=== PATIENT | male | born 1950 | race Caucasian/White ===

== ENCOUNTER 2018-01-11 11:49 | Inpatient (IN) ==
[2018-01-11] MEDS ORDERED: ASPIRIN 81 MG TAB.CHEW CHEWED ONE (12:07)
[2018-01-11] MEDS ORDERED: 0.9 % SODIUM CHLORIDE 1,000 ML IV ONE (12:07)
--- NOTE | 2018-01-11 12:20 | Emergency Department Note ---
General Adult HPI - General Chief complaint: Dizziness Stated complaint: dizziness Time Seen by Provider: 01/11/18 11:59 Source: patient Mode of arrival: ambulatory Limitations: no limitations - History of Present Illness HPI Narrative: This patient felt lightheaded this morning in the shower and actually passed out and found himself on the floor of the shower. His blood pressure is running a little low. He does take antihypertensives. He has had no fever chills cough congestion no chest pain back pain abdominal pain no nausea vomiting or diarrhea. - Related Data Home Medications Medication Instructions Recorded Confirmed travoprost 0.004 % eye drops 1 drp OPHTHALMIC ONCE 02/03/17 12/05/17 Previous Rx's Medication Instructions Recorded tamsulosin 0.4 mg capsule 0.4 mg PO QDAY #30 cap 03/07/17 lisinopril 20 1 tab PO QDAY #90 tab 06/16/17 mg-hydrochlorothiazide 25 mg tablet metformin ER 1,000 mg 24 hr 1,000 mg PO QDAY #90 tab 06/16/17 tablet,extended release atorvastatin 40 mg tablet 40 mg PO QDAY #90 tab 07/28/17 propranolol ER 120 mg capsule,24 120 mg PO QDAY #90 cap 08/21/17 hr,extended release Allergies Allergy/AdvReac Type Severity Reaction Status Date / Time codeine AdvReac Intermediate Nightmare Verified 01/11/18 11:52 Muscle Relaxers AdvReac Intermediate Other Uncoded 12/05/17 09:17 Review of Systems All systems ED: reviewed and negative except as stated. Past Medical History - Past Medical History PMF Narrative: Medical History (Last Reviewed 12/05/17 @ 09:18 by Eufemia Stockton RN) Chewing tobacco use (Chronic) Tremor (Chronic) Impaired fasting glucose (Chronic) Hyperlipidemia (Chronic) Personal history of colonic polyps (Chronic) Pancreatitis (Chronic ~2008) Closed right ankle fracture (Chronic 1974) Eye disorder (Chronic) Migraines (Chronic) Hypertension, essential (Chronic) Acid reflux (Chronic) codeine Adverse Reaction (Intermediate, Verified 01/11/18 11:52) Nightmare Muscle Relaxers Adverse Reaction (Intermediate, Uncoded 12/05/17 09:17) Other 01/11/18 12:07 ED Peripheral IV NOW IV Discontinue (ED) once XR chest 1V portable Stat CK-MB/CK Total Stat Complete Blood Count Stat Comprehensive Metabolic Panel Stat Myoglobin Stat Troponin T Stat 01/11/18 12:17 Lactic Acid, Venous Stat Urinalysis Stat Temp Pulse Resp BP Pulse Ox 97.4 F 65 18 95/54 99 01/11/18 11:50 01/11/18 11:50 01/11/18 11:50 01/11/18 11:50 01/11/18 11:50 Past Surgical History (Last Reviewed 12/05/17 @ 09:18 by Eufemia Stockton RN) H/O colonoscopy (Chronic) H/O eye surgery (Chronic) H/O eye surgery (Chronic) H/O inguinal hernia repair (Chronic) History of cholecystectomy (Chronic) History of open reduction and internal fixation (ORIF) procedure (Chronic) History of renal stent (Chronic) History of surgery (Chronic) History of surgery of liver (Chronic) Hx of eye surgery (Chronic) Family History (Last Reviewed 12/05/17 @ 09:18 by Eufemia Stockton RN) Mother Arthritis Diabetes Hypertension, essential CAD (coronary artery disease) Grandmother Diabetes Family/Other Diabetes Thyroid disease Father Heart attack CAD (coronary artery disease) Unknown Parkinson disease Medical history: Reports: non-contributory Psychiatric history: Reports: no psych history Surgical history ED: Reports: cholecystectomy - Social History smoking status: Smokeless tobacco Physical Exam Limitations: no limitations General appearance: alert Head: atraumatic Eye: Present: normal appearance ENT: normal exam Neck: Present: normal inspection Chest: Present: normal inspection Respiratory: Present: normal lung sounds bilaterally Cardiovascular: Present: regular rate, normal rhythm, normal heart sounds Abdominal: Present: soft. Absent: distention, tenderness Extremities: Absent: pedal edema, pretibial edema Neurological: Present: alert Psychiatric: Present: normal affect, normal mood Skin: Present: warm, dry, intact Course Vital Signs Temperature 97.4 F 01/11/18 11:50 Pulse Rate 65 01/11/18 11:50 Respiratory Rate 18 01/11/18 11:50 Blood Pressure 95/54 01/11/18 11:50 Pulse Oximetry (%) 99 01/11/18 11:50 Temperature 97.4 F 01/11/18 11:50 Pulse Rate 54 L 01/11/18 17:51 Respiratory Rate 16 01/11/18 17:41 Blood Pressure 128/61 01/11/18 17:51 Pulse Oximetry (%) 100 01/11/18 17:51 Medical Decision Making - MDM Narrative Medical decision making narrative: This patient's hypotension responded quickly to fluid hydration however he was unable to urinate and after 3 L of fluid he is only able to urinate 30 cc. Specific gravity was only 1015. His creatinine was 3.4 and back in June it was 1.1. He does have borderline diabetes. After 3 L of fluid his creatinine came down to 3.0 but his BUN remained at 52. His anion gap did improve from 18-13. I did not repeat his lactic acid but was only 2.2 initially. Chest x-ray was unremarkable. Urine dip did not have white cells. He had no fever. Actually felt quite well and was anxious to go home but I convinced him he needed to stay in the hospital to see Dr. Shetty tomorrow. I did consult with her. He will be admitted to the hospital by Dr. Anthony. - Lab Data Lab results reviewed: Yes I reviewed the patient's lab results. Result diagrams: 01/11/18 12:07 01/11/18 16:23 Lab Results 01/11/18 01/11/18 01/11/18 Range/Units 12:07 12:07 12:07 WBC 8.3 (4.5-11.0) K/mcL RBC 4.61 (4.50-5.90) M/mcL Hgb 14.1 (13.5-16.5) g/dL Hct 41.9 (41.0-55.0) % MCV 91.0 (80.0-100.0) fL MCH 30.7 (26.0-34.0) pg MCHC 33.7 (31.0-36.0) g/dL RDW 13.9 (11.5-14.5) % Plt Count 203 (140-440) K/mcL MPV 8.5 (7.4-10.4) fL Gran % 76.7 (38.0-78.0) % Lymph % (Auto) 14.8 L (15.5-49.0) % [place] % (Auto) 7.1 (1.0-12.0) % Eos % (Auto) 1.2 (0.0-7.0) % Baso % (Auto) 0.2 (0.0-2.0) % Gran # 6.4 (1.8-8.0) K/mcL Lymph # (Auto) 1.2 L (1.5-4.8) K/mcL [place] # (Auto) 0.6 (0.1-0.9) K/mcL Eos # (Auto) 0.1 (0.0-0.7) K/mcL Baso # (Auto) 0 (0.0-0.3) K/mcL VBG Lactic Acid (0.5-2.0) mmol/L Sodium 133 (133-145) mmol/L Potassium 3.7 (3.3-5.1) mmol/L Chloride 90 L (96-108) mmol/L Carbon Dioxide 25 (22-30) mmol/L Anion Gap 18.0 H (8-16) BUN 53 H (8-23) mg/dl Creatinine 3.4 H (0.7-1.2) mg/dl GFR Calculation 18 Glucose 182 H (70-105) mg/dL Calcium 8.6 (8.6-10.4) mg/dl Total Bilirubin 0.9 (0.0-1.0) mg/dL AST 19 (0-37) U/l ALT 22 (0-40) U/l Alkaline Phosphatase 126 H (39-117) U/L Total Creatine Kinase 60 (24-195) IU/L CK-MB (CK-2) 1.4 (0-4.9) ng/ml Myoglobin 130 H (28-72) ng/ml Troponin T < 0.01 (0-0.03) ng/ml Total Protein 7.0 (5.9-8.4) gm/dL Albumin 4.3 (3.2-5.2) gm/dL Globulin 2.7 (2.2-3.7) gm/dL Albumin/Globulin Ratio 1.6 (1.0-2.3) 01/11/18 01/11/18 Range/Units 12:47 16:23 WBC (4.5-11.0) K/mcL RBC (4.50-5.90) M/mcL Hgb (13.5-16.5) g/dL Hct (41.0-55.0) % MCV (80.0-100.0) fL MCH (26.0-34.0) pg MCHC (31.0-36.0) g/dL RDW (11.5-14.5) % Plt Count (140-440) K/mcL MPV (7.4-10.4) fL Gran % (38.0-78.0) % Lymph % (Auto) (15.5-49.0) % [place] % (Auto) (1.0-12.0) % Eos % (Auto) (0.0-7.0) % Baso % (Auto) (0.0-2.0) % Gran # (1.8-8.0) K/mcL Lymph # (Auto) (1.5-4.8) K/mcL [place] # (Auto) (0.1-0.9) K/mcL Eos # (Auto) (0.0-0.7) K/mcL Baso # (Auto) (0.0-0.3) K/mcL VBG Lactic Acid 2.2 H (0.5-2.0) mmol/L Sodium 137 (133-145) mmol/L Potassium 4.1 (3.3-5.1) mmol/L Chloride 98 (96-108) mmol/L Carbon Dioxide 26 (22-30) mmol/L Anion Gap 13.0 (8-16) BUN 52 H (8-23) mg/dl Creatinine 3.0 H (0.7-1.2) mg/dl GFR Calculation 21 Glucose 183 H (70-105) mg/dL Calcium 8.1 L (8.6-10.4) mg/dl Total Bilirubin 0.7 (0.0-1.0) mg/dL AST 14 (0-37) U/l ALT 18 (0-40) U/l Alkaline Phosphatase 100 (39-117) U/L Total Creatine Kinase (24-195) IU/L CK-MB (CK-2) (0-4.9) ng/ml Myoglobin (28-72) ng/ml Troponin T (0-0.03) ng/ml Total Protein 5.6 L (5.9-8.4) gm/dL Albumin 3.6 (3.2-5.2) gm/dL Globulin 2.0 L (2.2-3.7) gm/dL Albumin/Globulin Ratio 1.8 (1.0-2.3) - Radiology Data Radiology results reviewed: Yes I reviewed the patient's radiology results. Disposition Pt seen by ROTOR CASTING MACHINE SETUP OPERATOR/PA only: No Clinical Impression: Acute renal failure, Dehydration Disposition: Xfer As Outpt/Obs ([facility] [place]) Condition: Good Referrals: Bola Roberts DO [Primary Care Provider] - Time of Disposition: 18:07
--- NOTE | 2018-01-11 12:29 | XRay Report ---
CLINICAL INFORMATION: Chest Pain COMPARISON: 06/23/2017 FINDINGS: The heart size, mediastinum and pulmonary vessels are unremarkable. The lungs are clear. There are no effusions. The bones and soft tissues are within normal limits. IMPRESSION: Normal chest. Interpreted and Authenticated by: Bola Pisano 01/11/18
[2018-01-11 12:38] LABS: Basophils # (Auto) 0 K/mcL (0.0-0.3); Basophils % (Auto) 0.2 % (0.0-2.0); Eosinophils # (Auto) 0.1 K/mcL (0.0-0.7); Eosinophils % (Auto) 1.2 % (0.0-7.0); Granulocytes % (Auto) 76.7 % (38.0-78.0); Lymphocytes # (Auto) 1.2 K/mcL (1.5-4.8); Lymphocytes % (Auto) 14.8 % (15.5-49.0); Mean Corpuscular HGB Conc 33.7 g/dL (31.0-36.0); Mean Corpuscular Hemoglobin 30.7 pg (26.0-34.0); Monocytes # (Auto) 0.6 K/mcL (0.1-0.9); Monocytes % (Auto) 7.1 % (1.0-12.0); Platelet Count 203 K/mcL (140-440); RBC 4.61 M/mcL (4.50-5.90); Red Cell Distribution Width 13.9 % (11.5-14.5)
[2018-01-11 13:02] LABS: ALT/SGPT 22 U/l (0-40); Albumin 4.3 gm/dL (3.2-5.2); Albumin/Globulin Ratio 1.6 (1.0-2.3); Alkaline Phosphatase 126 U/L (39-117); Blood Urea Nitrogen 53 mg/dl (8-23); Creatine Kinase 60 IU/L (24-195); Creatine Kinase MB 1.4 ng/ml (0-4.9); Myoglobin 130 ng/ml (28-72)
[2018-01-11] MEDS ORDERED: LACTATED RINGERS 1,000 ML IV ONE ×2 (15:07→15:08)
[2018-01-11 17:21] LABS: ALT/SGPT 18 U/l (0-40); Albumin 3.6 gm/dL (3.2-5.2); Albumin/Globulin Ratio 1.8 (1.0-2.3); Alkaline Phosphatase 100 U/L (39-117); Blood Urea Nitrogen 52 mg/dl (8-23)
--- NOTE | 2018-01-11 18:37 | Internal Med History&Physical ---
Medical - H&P: HPI Patient information: Note initiated : 01/11/18 at 6:33 pm Service Date, if different from initiated Date: [] Patient: Yajaira Cardenas a 67 y/o M admitted on for dizziness. Chief Complaint: [] History of present illness: Mr. Cardenas is a 67 year old M who presents to the ER after syncope in the shower. Patient states over the past couple days has had increasing weakness and lightheadedness this morning in the shower he felt very weak became lightheaded and eventually passed out and found himself on the floor of the shower did not hit his head. Patient brought himself to the ER. In the ER was found to have systolics in the 80s in the acute kidney injury. His EKG shows sinus bradycardia 50s, patient states his heart rate typically runs 40s-50s. Chest x-ray unremarkable. She has not patient denies any chest pain or shortness of breath no abdominal pain. No recent illnesses or sick contacts. No new medications other than medications restarted year ago. Patient denies diarrhea fevers or chills. He had an episode of nausea vomiting after Thanksgiving which is not unusual for him to have an episode of nausea vomiting after large meals. None since. In the ER his hypotension resolved with IV fluid hydration he received 3 L, and began to feel much better. Home medications include lisinopril hydrochlorothiazide propranolol for essential tremor. He established with Dr. Roberts about a year ago and started on all his medications as he had not seen a primary care doctor the 10 years prior. Case was discussed with Dr. Orellana ED. Patient was convinced to stay overnight for further evaluation including evaluation by fusion juncture grinder. Review of Systems: Pertinent positives as above. denies headache/fever/chills/chest or abdominal pain/cough/dyspnea/diarrhea. Remaining 10 point review of systems reviewed and negative Medical - H&P: PM Medical history: Medical History (Last Reviewed 12/05/17 @ 09:18 by Eufemia Stockton RN) Chewing tobacco use (Chronic) Tremor (Chronic) Impaired fasting glucose (Chronic) Hyperlipidemia (Chronic) Personal history of colonic polyps (Chronic) Pancreatitis (Chronic ~2008) Closed right ankle fracture (Chronic 1974) Eye disorder (Chronic) Migraines (Chronic) Hypertension, essential (Chronic) Acid reflux (Chronic) CKD II Past Surgical History (Last Reviewed 12/05/17 @ 09:18 by Eufemia Stockton RN) H/O colonoscopy (Chronic) H/O eye surgery (Chronic) H/O eye surgery (Chronic) H/O inguinal hernia repair (Chronic) History of cholecystectomy (Chronic) during hospital course of severe pancreatitis History of open reduction and internal fixation (ORIF) procedure (Chronic) History of renal stent (Chronic) during the hospital course for his severe pancreatitis History of surgery (Chronic) of pancreas during the hospitalization for severe pancreatitis History of surgery of liver (Chronic) Hx of eye surgery (Chronic) Family History (Last Reviewed 12/05/17 @ 09:18 by Eufemia Stockton RN) Mother Arthritis Diabetes Hypertension, essential CAD (coronary artery disease) Grandmother Diabetes Family/Other Diabetes Thyroid disease Father Heart attack CAD (coronary artery disease) Unknown Parkinson disease Social History (Last Updated 12/05 Patient uses chewing tobacco, no cigarettes Denies alcohol Lives by himself Medical - H&P: Meds Home Medications Medication Instructions Recorded Confirmed Type travoprost 0.004 % eye drops 1 drp OPHTHALMIC ONCE 02/03/17 01/11/18 History tamsulosin 0.4 mg capsule 0.4 mg PO QDAY #30 cap 03/07/17 01/11/18 Rx lisinopril 20 1 tab PO QDAY #90 tab 06/16/17 12/05/17 Rx mg-hydrochlorothiazide 25 mg tablet metformin ER 1,000 mg 24 hr 1,000 mg PO QDAY #90 tab 06/16/17 01/11/18 Rx tablet,extended release atorvastatin 40 mg tablet 40 mg PO QDAY #90 tab 07/28/17 01/11/18 Rx propranolol ER 120 mg capsule,24 120 mg PO QDAY #90 cap 08/21/17 01/11/18 Rx hr,extended release Dorzolamide/Timolol/Pf 1 each OU DAILY 01/11/18 01/11/18 History [Dorzolamide-Timolol 2%-0.5%] Timolol 0.5% Ophth Drops [Timoptic 1 gtt OU BID 01/11/18 01/11/18 History 0.5% Ophth Drops] Allergies Allergy/AdvReac Type Severity Reaction Status Date / Time codeine AdvReac Intermediate Nightmare Verified 01/11/18 11:52 Muscle Relaxers AdvReac Intermediate Other Uncoded 12/05/17 09:17 Medical - H&P: Exam - Constitutional Vitals: Temp Pulse Resp BP Pulse Ox 97.4 F 54 L 16 128/61 100 01/11/18 11:50 01/11/18 17:51 01/11/18 17:41 01/11/18 17:51 01/11/18 17:51 Exam: General: Alert, Awake, No acute Distress Eyes/N/T: EOMI, , dry mucous membranes Head/Neck: neck supple, normocephalic atraumatic CV: Mildly bradycardic but regular, No murmurs, normal s1/s2 Pulm: Clear b/l, no wheezing/rhonchi/rales Abd: soft, nontender, +BS x4 Ext: no clubbing/cyanosis/edema Neuro: Alert, no focal deficits, moves all extremities Skin: warm/dry Medical - H&P: Reslt - Labs CBC & Chem 7: 01/11/18 12:07 01/11/18 16:23 Labs: Short CBC 01/11/18 Range/Units 12:07 WBC 8.3 (4.5-11.0) K/mcL Hgb 14.1 (13.5-16.5) g/dL Hct 41.9 (41.0-55.0) % Plt Count 203 (140-440) K/mcL BMP 01/11/18 01/11/18 12:07 16:23 Sodium 133 137 Potassium 3.7 4.1 Chloride 90 L 98 Carbon Dioxide 25 26 BUN 53 H 52 H Creatinine 3.4 H 3.0 H Glucose 182 H 183 H Calcium 8.6 8.1 L Cardiac Enzymes 01/11/18 01/11/18 Range/Units 12:07 12:07 Total Creatine Kinase 60 (24-195) IU/L CK-MB (CK-2) 1.4 (0-4.9) ng/ml Troponin T < 0.01 (0-0.03) ng/ml Liver Function 01/11/18 01/11/18 Range/Units 12:07 16:23 Total Bilirubin 0.9 0.7 (0.0-1.0) mg/dL AST 19 14 (0-37) U/l ALT 22 18 (0-40) U/l Alkaline Phosphatase 126 H 100 (39-117) U/L Albumin 4.3 3.6 (3.2-5.2) gm/dL - Impressions Chest x-ray unremarkable EKG was sinus bradycardia in the 50s Medical - H&P: A/P - Narrative A/P Narrative: A: *ZEV on CKD II: prerenal multifactorial from Meds/chronic Bradycardia and likely recent poor oral intake -3.4 on admit, 1.1 in June *Volume depletion: *Hypertension, hypovolemia: *Syncope: Secondary to above *Diabetes: *HTN/HLD: *Sinus Roberto: pt state he is chronically 45-50's P: -IVF's -renal u/s -UA pending -hold BP meds (may need to adjust upon discharge), d/c BB upon discharge and consider primidone for essential tremors instead -urine studies pending - -SSI -ppx: heparin
[2018-01-11 18:49] LABS: Appearance,Urine HAZY; Bacteria,Urine 0 /hpf (0); Bilirubin,Urine NEG (NEG); Color,Urine YELLOW; Glucose,Urine (UA) NEGATIVE (NEG); Leukocyte Esterase,Urine NEG /uL (NEG); Mucus,Urine FEW /hpf (0); Protein,Urine NEG (NEG); Specific Gravity,Urine 1.015 (1.000-1.035); Urine Blood 0.03 mg/dL (<0.03); Urine Hyaline Cast 6 /lpf (0-2); Urine RBC 1 /hpf (0-1); Urine Squamous Epithelial Cell < 1 /hpf (0-4); Urine WBC 6 /hpf (0-4); Urobilinogen,Urine NEG (NEG)
[2018-01-11] MEDS ORDERED: ONDANSETRON 4 MG/2 ML VIAL IV PRN (19:38)
[2018-01-11] MEDS ORDERED: DEXTROSE 50% 50 ML VIAL IV PRN (19:38)
[2018-01-11] MEDS ORDERED: ACETAMINOPHEN 325 MG TABLET PO PRN (19:38)
[2018-01-11] MEDS ORDERED: DEXTROSE 31 GM ORAL.SUSP PO PRN (19:38)
[2018-01-11] MEDS: 0.9 % SODIUM CHLORIDE 1,000 ML IV SCH (20:11)
[2018-01-11] MEDS ORDERED: TRAVOPROST OPHTH DROPS BOTTLE 2.5ML OS SCH (21:00)
[2018-01-11] MEDS: INSULIN LISPRO 1 UNIT/0.01 ML UNIT SQ SCH (21:13)
[2018-01-11] MEDS: TIMOLOL 0.5% OPHTH DROPS BOTTLE 5ML OU SCH (21:15)
[2018-01-11] MEDS: HEPARIN 5,000 UNIT/ML VIAL SQ SCH (21:15)
[2018-01-12 05:37] LABS: Basophils # (Auto) 0 K/mcL (0.0-0.3); Basophils % (Auto) 0.4 % (0.0-2.0); Eosinophils # (Auto) 0.1 K/mcL (0.0-0.7); Eosinophils % (Auto) 2.2 % (0.0-7.0); Granulocytes % (Auto) 65.7 % (38.0-78.0); Lymphocytes # (Auto) 1.4 K/mcL (1.5-4.8); Lymphocytes % (Auto) 22.5 % (15.5-49.0); Mean Cell Volume 90.1 fL (80.0-100.0); Mean Corpuscular HGB Conc 34.2 g/dL (31.0-36.0); Mean Corpuscular Hemoglobin 30.8 pg (26.0-34.0); Monocytes # (Auto) 0.6 K/mcL (0.1-0.9); Monocytes % (Auto) 9.2 % (1.0-12.0); Platelet Count 148 K/mcL (140-440); RBC 3.82 M/mcL (4.50-5.90); Red Cell Distribution Width 13.7 % (11.5-14.5)
[2018-01-12] MEDS: 0.9 % SODIUM CHLORIDE 10 ML SYRINGE IV SCH ×4 (05:58→22:54)
[2018-01-12 06:03] LABS: ALT/SGPT 16 U/l (0-40); Albumin 3.3 gm/dL (3.2-5.2); Albumin/Globulin Ratio 1.5 (1.0-2.3); Alkaline Phosphatase 103 U/L (39-117); Bilirubin,Direct < 0.2 mg/dL (0.0-0.3); Blood Urea Nitrogen 49 mg/dl (8-23); Gamma Glutamyl Transpeptidase 26 U/L (8-61); Uric Acid 9.1 mg/dL (2.5-8.0)
[2018-01-12] MEDS: INSULIN LISPRO 1 UNIT/0.01 ML UNIT SQ SCH ×4 (06:38→20:57)
--- NOTE | 2018-01-12 07:13 | Internal Med Progress Note ---
Medical - PN: Subj Patient information: Note initiated : 01/12/18 at 7:07 am Service Date, if different from initiated Date: [] Patient: Yajaira Cardenas a 67 y/o M admitted on 01/11/18 for dizziness. Chief Complaint: [] Interval history: Mr. Cardenas is a 67 year old M who presents to the ER after syncope in the shower. Patient states over the past couple days has had increasing weakness and lightheadedness this morning in the shower he felt very weak became lightheaded and eventually passed out and found himself on the floor of the shower did not hit his head. Patient brought himself to the ER. In the ER was found to have systolics in the 80s in the acute kidney injury. His EKG shows sinus bradycardia 50s, patient states his heart rate typically runs 40s-50s. Chest x-ray unremarkable. She has not patient denies any chest pain or shortness of breath no abdominal pain. No recent illnesses or sick contacts. No new medications other than medications restarted year ago. Patient denies diarrhea fevers or chills. He had an episode of nausea vomiting after Thanksgiving which is not unusual for him to have an episode of nausea vomiting after large meals. None since. In the ER his hypotension resolved with IV fluid hydration he received 3 L, and began to feel much better. Home medications include lisinopril hydrochlorothiazide propranolol for essential tremor. He established with Dr. Roberts about a year ago and started on all his medications as he had not seen a primary care doctor the 10 years prior. Case was discussed with Dr. Orellana ED. Patient was convinced to stay overnight for further evaluation including evaluation by grey percher. 01/12 No dizziness lightheadedness. Slept well. Feeling better. No new complaints. He feels like he is urinating fine but states it does come on slowly. Review of Systems: denies headache/fever/chills/nausea/vomiting/chest or abdominal pain/cough/ dyspnea/diarrhea. Otherwise see above. - Constitutional Vitals: Vital Signs Temp Pulse Resp BP Pulse Ox 98.2 F 57 L 18 106/60 93 01/12/18 04:00 01/12/18 04:00 01/12/18 04:00 01/12/18 04:00 01/12/18 04:00 Period Temp Pulse Resp BP Sys/Lu Pulse Ox Last 24 Hr 97.3 F-98.7 F 49-81 13-24 64-139/50-90 88-100 Intake and Output 01/11/18 01/12/18 01/12/18 21:59 05:59 13:59 Intake Total 2720 / 2720 150 / 150 Output Total 325 / 325 425 / 425 Balance 2395 / 2395 -275 / -275 Weight 88.451 kg 88.451 kg Intake & Output: Intake & Output 01/11/18 01/12/18 01/12/18 21:59 05:59 13:59 Intake Total 2720 / 2720 150 / 150 Output Total 325 / 325 425 / 425 Balance 2395 / 2395 -275 / -275 Weight 88.451 kg 88.451 kg Intake: IV 1999 Lactated Ringers 1,000 ml @ 1999 Wide Open IV BOLUS ONE Rx#: [id number] Oral 720 / 720 150 / 150 Output: Void Amount 325 / 325 425 / 425 Other: Meal Jello, crackers Urine Appearance Clear Urine Color Dark Yellow Urine Odor Strong # Voids 1 1 Exam: General: Alert, Awake, No acute Distress Eyes/N/T: EOMI, , Head/Neck: neck supple, CV: RRR, No murmurs, Pulm: Clear b/l, no wheezing/rhonchi/rales Abd: soft, nontender, +BS x4 Ext: no clubbing/cyanosis/edema Neuro: Alert, no focal deficits, moves all extremities Skin: warm/dry Medical - PN: Obj Da - Labs CBC & Chem 7: 01/12/18 04:00 01/12/18 03:35 Labs: Abnormal Lab Results 01/12/18 01/12/18 01/11/18 04:00 03:35 17:53 RBC 3.82 L Hgb 11.8 L Hct 34.4 L Lymph % (Auto) Lymph # (Auto) 1.4 L VBG Lactic Acid Chloride Anion Gap BUN 49 H Creatinine 2.4 H Glucose 122 H Uric Acid 9.1 H Calcium 8.2 L Alkaline Phosphatase Myoglobin Total Protein 5.5 L Globulin Triglycerides 249 H Urine Occult Blood 0.03 A Urine WBC 6 H Hyaline Casts 6 H 01/11/18 01/11/18 01/11/18 16:23 12:47 12:07 RBC Hgb Hct Lymph % (Auto) Lymph # (Auto) VBG Lactic Acid 2.2 H Chloride 90 L Anion Gap 18.0 H BUN 52 H 53 H Creatinine 3.0 H 3.4 H Glucose 183 H 182 H Uric Acid Calcium 8.1 L Alkaline Phosphatase 126 H Myoglobin 130 H Total Protein 5.6 L Globulin 2.0 L Triglycerides Urine Occult Blood Urine WBC Hyaline Casts 01/11/18 12:07 RBC Hgb Hct Lymph % (Auto) 14.8 L Lymph # (Auto) 1.2 L VBG Lactic Acid Chloride Anion Gap BUN Creatinine Glucose Uric Acid Calcium Alkaline Phosphatase Myoglobin Total Protein Globulin Triglycerides Urine Occult Blood Urine WBC Hyaline Casts Meds: Medications Acetaminophen (Tylenol) 650 mg PO Q6HP PRN PRN Reason: PAIN/FEVER > 101 Dextrose (Dextrose 50%) 0 ml IV UD PRN PRN Reason: Hypoglycemia Diagnostic Test (Pha) (Accu-Chek) 1 each FS ACHS [facility] Last Admin: 01/12/18 06:36 Dose: 1 each Glucose (Insta-Glucose) 15 gm PO PRN PRN PRN Reason: Hypoglycemia Heparin Sodium (Porcine) (Heparin) 5,000 unit SQ Q12 [facility] Last Admin: 01/11/18 21:15 Dose: 5,000 unit Sodium Chloride (Sodium Chloride 0.9%) 1,000 mls @ 100 mls/hr IV .Q10H [facility] Last Admin: 01/11/18 20:11 Dose: 100 mls/hr Insulin Human Lispro (Humalog) 0 unit SQ [facility]; Protocol Last Admin: 01/12/18 06:38 Dose: Not Given Ondansetron HCl (Zofran) 4 mg IV Q4HP PRN PRN Reason: Nausea And Vomiting Sodium Chloride (Saline Flush) 10 ml IV Q8 [facility] Last Admin: 01/12/18 05:58 Dose: Not Given Tamsulosin HCl (Flomax) 0.4 mg PO QDAY [facility] Timolol Maleate (Timoptic 0.5% Ophth Drops) 1 gtt OU BID [facility] Last Admin: 01/11/18 21:15 Dose: Not Given Travoprost (Travatan Z Ophth Drops) 1 gtt OS HS [facility] Last Admin: 01/11/18 21:15 Dose: Not Given Medical - PN: A/P - Time Spent With Patient Total time spent is greater than 50% in coordination of care (as documented) at patient's floor/unit and/or counseling patient: - Narrative A/P Narrative: A: *ZEV on CKD II: multifactorial from Meds/chronic Bradycardia/Hypotension and likely recent poor oral intake; And possibly component of bladder outlet obstruction from prostate enlargement -3.4 on admit, 1.1 in June; prerenal FENa -renal u/s with mild left hydronephrosis -now 2.4 *Volume depletion: resolved *Hypotension, hypovolemic: *Syncope: Secondary to above *Diabetes: *HTN/HLD: *Sinus Roberto: pt state he is chronically in 50's and sometime mid 40's *BPH P: -IVF's, monitor UOP -f/u renal u/s outpt with [facility] -d/w with Dr. Dodge, his urologist -hold BP meds (may need to adjust upon discharge), BB can be transitioned to primidone for essential tremors instead -SSI -cont flomax -ppx: heparin Medical - PN: Qual - VTE Deep Vein Thrombosis/Pulmonary Embolism Present on Admission: No
--- NOTE | 2018-01-12 07:44 | Ultrasound Report ---
CLINICAL INFORMATION: ZEV. History of right hydronephrosis and ureteral stent COMPARISON: Abdomen CT 01/16/2009 and renal ultrasound 03/27/2009. FINDINGS: Both kidneys are normal and symmetric in size, position, configuration and echotexture: The right is 10.5 x 6 cm and the left is 12 x 6 cm. 1.4 cm simple cyst inferior right kidney is unchanged. There is no stone or solid lesion. Mild left hydronephrosis is appreciated. Urinary bladder volume is 163 cc with 81 cc post void residual. Prostate is mildly enlarged is 67 cc. There is a 3.1 cm region of the enlarged prostate which invaginates into the urinary bladder base. IMPRESSION: Mild left hydronephrosis. 1.4 cm simple cyst inferior right kidney. Both kidneys, upper collecting systems and ureters are otherwise normal. Moderate prostatic enlargement. There is hypertrophied prostatic tissue invaginating the bladder base spanning 3.1 cm. Cystoscopy should be performed to ensure this does not represent an adjacent bladder mass. Consider: CT IVP Interpreted and Authenticated by: Bola Pisano 01/12/18
[2018-01-12] MEDS: 0.9 % SODIUM CHLORIDE 1,000 ML IV SCH ×3 (07:54→22:00)
[2018-01-12] MEDS ORDERED: TAMSULOSIN 0.4 MG CAPSULE PO SCH (09:00)
[2018-01-12] MEDS: TIMOLOL 0.5% OPHTH DROPS BOTTLE 5ML OU SCH ×2 (09:33→20:57)
[2018-01-12] MEDS: HEPARIN 5,000 UNIT/ML VIAL SQ SCH ×2 (09:48→20:54)
--- NOTE | 2018-01-12 10:37 | Nephrology Consult Note ---
History of Present Illness - Reason for Consult Patient information: Note initiated : 01/12/18 at 10:15 am Service Date, if different from initiated Date: [] Patient: Yajaira Cardenas 67 y/o M admitted on 01/11/18 for dizziness. Chief Complaint: [] Consult date: 01/11/18 acute renal failure Requesting physician: Joe Otero - Chief Complaint dizziness - History of Present Illness Patient is a 67 y/o pleasant white male with PMH of HTN, dyslipidemia and other medical issues who is admitted for ZEV Patient presented to the ER yesterday after he had an episode of syncope while in the shower yesterday morning. He c/o having dizziness/lightheaded for 2 days before this. 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 Admits to not drinking enough fluids no CP, SOB no edema no urinary symptoms,d enies hematuria denies using NSAIDS no fever/chills Patient on evaluation in the ER was found to be hypotensive with BP in 80's systolic and his labs were significant for acute renal failure with s.creatinine of 3.4 he was given 3L of IVF and he made only 30cc of urine with this, given this I requested patient be admitted overnight to ensure his renal function continues to improve and we get required work up Patient c/o chronic fatigue, states has no energy to do much also has h/o hydrocoele and follows with Dr Dodge at [facility] for this Review of Systems All systems PM: reviewed and no additional remarkable complaints except as stated (as in HPI) Past History Past medical history: HTN on lisinopril/hctz dyslipidemia tremors on propranolol XL 120mg PO daily pre diabetes on metformin h/o pancreatitis Past surgical history: Hx of eye surgery Chronic History of surgery of liver Chronic History of renal stent Chronic, does not know why it was done H/O eye surgery Chronic H/O eye surgery Chronic H/O inguinal hernia repair Chronic History of cholecystectomy Chronic History of surgery Chronic History of open reduction and internal fixation (ORIF) procedure Chronic H/O colonoscopy Chronic Past family history: Arthritis Mother Diabetes Mother Hypertension, essential Mother CAD (coronary artery disease) Mother Father Heart attack CAD (coronary artery disease) Past social history: , volunteers at elementary school chews tobacco no h/o any other addictions Medications and Allergies Home Medications Medication Instructions Recorded Confirmed Type travoprost 0.004 % eye drops 1 drp OPHTHALMIC QHS 02/03/17 01/11/18 History tamsulosin 0.4 mg capsule 0.4 mg PO QDAY #30 cap 03/07/17 01/11/18 Rx lisinopril 20 1 tab PO QDAY #90 tab 06/16/17 01/11/18 Rx mg-hydrochlorothiazide 25 mg tablet metformin ER 1,000 mg 24 hr 1,000 mg PO QDAY #90 tab 06/16/17 01/11/18 Rx tablet,extended release atorvastatin 40 mg tablet 40 mg PO QDAY #90 tab 07/28/17 01/11/18 Rx propranolol ER 120 mg capsule,24 120 mg PO QDAY #90 cap 08/21/17 01/11/18 Rx hr,extended release Dorzolamide/Timolol/Pf 1 each OU DAILY 01/11/18 01/11/18 History [Dorzolamide-Timolol 2%-0.5%] Timolol 0.5% Ophth Drops [Timoptic 1 gtt OU BID 01/11/18 01/11/18 History 0.5% Ophth Drops] Allergies Allergy/AdvReac Type Severity Reaction Status Date / Time codeine AdvReac Intermediate Nightmare Verified 01/11/18 11:52 Muscle Relaxers AdvReac Intermediate Other Uncoded 12/05/17 09:17 Exam - Vital Signs Vital signs: Temp Pulse Resp BP Pulse Ox 98.0 F 52 L 14 116/61 97 01/12/18 08:00 01/12/18 08:00 01/12/18 08:00 01/12/18 08:00 01/12/18 08:00 - General Appearance General appearance: appears started age Results - Lab Results 01/12/18 04:00 01/12/18 03:35 Most recent lab results Calcium 8.2 mg/dl (8.6-10.4) L 01/12/18 03:35 Phosphorus 4.2 mg/dL (2.7-4.5) 01/12/18 03:35 Magnesium 1.6 mg/dL (1.6-2.5) 01/12/18 03:35 Assessment and Plan (1) Hydronephrosis, left Status: Acute (2) Acute renal failure Status: Acute (3) Hypertension, essential Status: Chronic - Narrative A/P Narrative: Patient with s.creatinine 3.4 on admission trend 3.0-2.4 this am s.creatinine at baseline 1.1 Fena is 0.9% renal US with left mild hydronephrosis and prostate gland enlargement, follows with urology for hydrocoele, will update Dr Dodge with new findings. Patient also states he is monitoring his PSA level ZEV likely from pre renal state, hypotension in the setting of use of ACEI and diuretics has some mild left hydro which will need urology follow up (I have updated Dr Dodge about the renal US finding) agree with holding ACEI/diuretic has received IV hydration labs discussed with the patient educated about renal issue requested to ensure adequate hydration would recommend holding acei/hctz for now, BP is stable and does not need it will follow along
[2018-01-12] MEDS ORDERED: DEXTROSE 50% 50 ML VIAL IV PRN (11:07)
[2018-01-12] MEDS ORDERED: DEXTROSE 31 GM ORAL.SUSP PO PRN (11:07)
[2018-01-12] MEDS ORDERED: ACETAMINOPHEN 325 MG TABLET PO PRN (11:07)
[2018-01-12] MEDS ORDERED: ONDANSETRON 4 MG/2 ML VIAL IV PRN (11:07)
[2018-01-12] MEDS ORDERED: TRAVOPROST OPHTH DROPS BOTTLE 2.5ML OS SCH (21:00)
[2018-01-13] MEDS: 0.9 % SODIUM CHLORIDE 1,000 ML IV SCH ×3 (00:40→11:36)
[2018-01-13] MEDS: 0.9 % SODIUM CHLORIDE 10 ML SYRINGE IV SCH (04:50)
[2018-01-13 07:28] LABS: Blood Urea Nitrogen 36 mg/dl (8-23)
--- NOTE | 2018-01-13 08:14 | Discharge Summary ---
Medical - DS: Prov Patient information: Note initiated : 01/13/18 at 8:05 am Service Date, if different from initiated Date: [] Patient: Yajaira Cardenas 67 y/o M admitted on 01/11/18 for dizziness. Chief Complaint: [] Date of admission: 01/11/18 19:30 Discharge date: 01/13/18 Primary care physician: Bola Roberts Consults: 01/11/18 Consult to Physician [CONS] Stat Comment: Consulting Provider: Adan Anthony Reason For Exam: Physician to Consult Medical - DS: Meds - Discharge Medications Prescriptions: Blood Sugar Diagnostic [Test Strips] 1 each ACHS #100 strip Insulin Lispro [Admelog Solostar] See Protocol SQ ACHS #10 ml Pen Needle, Diabetic [Insulin Pen Needle] 1 each ACHS #100 dis.needle Propranolol [Inderal] 20 mg PO BID #40 tab Syring-Needl,Disp,Insul,0.3 ml [Easy Touch Insulin Syringe] 1 each ACHS #100 disp.syrin Active and Home Medications: Home Medications travoprost 0.004 % eye drops 1 drp OPHTHALMIC QHS 02/03/17 [History Confirmed Last Taken 06/24/17] tamsulosin 0.4 mg capsule 0.4 mg PO QDAY #30 cap 03/07/17 [Rx Confirmed Last Taken 06/24/17] lisinopril 20 mg-hydrochlorothiazide 25 mg tablet 1 tab PO QDAY #90 tab [Rx Confirmed 01/11/18 Last Taken 06/26/17] metformin ER 1,000 mg 24 hr tablet,extended release 1,000 mg PO QDAY #90 tab [Rx Confirmed 01/11/18 Last Taken 06/24/17] atorvastatin 40 mg tablet 40 mg PO QDAY #90 tab 07/28/17 [Rx Confirmed 01/11/18 Last Taken Unknown] propranolol ER 120 mg capsule,24 hr,extended release 120 mg PO QDAY #90 cap 07/04 [Rx Confirmed 01/11/18 Last Taken Unknown] Dorzolamide/Timolol/Pf [Dorzolamide-Timolol 2%-0.5%] 1 each OU DAILY 01/11/18 [ History Confirmed 01/11/18 Last Taken Unknown] Timolol 0.5% Ophth Drops [Timoptic 0.5% Ophth Drops] 1 gtt OU BID 01/11/18 [ History Confirmed 01/11/18 Last Taken Unknown] Home Medications travoprost 0.004 % eye drops 1 drp OPHTHALMIC QHS 02/03/17 [History Confirmed Last Taken 06/24/17] tamsulosin 0.4 mg capsule 0.4 mg PO QDAY #30 cap 03/07/17 [Rx Confirmed Last Taken 06/24/17] metformin ER 1,000 mg 24 hr tablet,extended release 1,000 mg PO QDAY #90 tab [Rx Confirmed 01/11/18 Last Taken 06/24/17] atorvastatin 40 mg tablet 40 mg PO QDAY #90 tab 07/28/17 [Rx Confirmed 01/11/18 Last Taken Unknown] propranolol ER 120 mg capsule,24 hr,extended release 120 mg PO QDAY #90 cap 07/04 [Rx Confirmed 01/11/18 Last Taken Unknown] Dorzolamide/Timolol/Pf [Dorzolamide-Timolol 2%-0.5%] 1 each OU DAILY 01/11/18 [ History Confirmed 01/11/18 Last Taken Unknown] Timolol 0.5% Ophth Drops [Timoptic 0.5% Ophth Drops] 1 gtt OU BID 01/11/18 [ History Confirmed 01/11/18 Last Taken Unknown] Blood Sugar Diagnostic [Test Strips] 1 each ACHS #100 strip 01/13/18 [Rx Last Taken Unknown] Insulin Lispro [Admelog Solostar] See Protocol SQ ACHS #10 ml 01/13/18 [Rx Last Taken Unknown] Pen Needle, Diabetic [Insulin Pen Needle] 1 each ACHS #100 dis.needle [Rx Last Taken Unknown] Propranolol [Inderal] 20 mg PO BID #40 tab 01/13/18 [Rx Last Taken Unknown] Syring-Needl,Disp,Insul,0.3 ml [Easy Touch Insulin Syringe] 1 each ACHS #100 disp.syrin 01/13/18 [Rx Last Taken Unknown] Medical - DS: Hosp Hospital course: Mr. Cardenas is a 67 year old M Mr. Cardenas is a 67 year old M who presents to the ER after syncope in the shower. Patient states over the past couple days has had increasing weakness and lightheadedness this morning in the shower he felt very weak became lightheaded and eventually passed out and found himself on the floor of the shower did not hit his head. Patient brought himself to the ER. In the ER was found to have systolics in the 80s in the acute kidney injury. His EKG shows sinus bradycardia 50s, patient states his heart rate typically runs 40s-50s. Chest x-ray unremarkable. She has not patient denies any chest pain or shortness of breath no abdominal pain. No recent illnesses or sick contacts. No new medications other than medications restarted year ago. Patient denies diarrhea fevers or chills. He had an episode of nausea vomiting after Thanksgiving which is not unusual for him to have an episode of nausea vomiting after large meals. None since. In the ER his hypotension resolved with IV fluid hydration he received 3 L, and began to feel much better. Home medications include lisinopril hydrochlorothiazide propranolol for essential tremor. He established with Dr. Roberts about a year ago and started on all his medications as he had not seen a primary care doctor the 10 years prior. Case was discussed with Dr. Orellana ED. Patient was convinced to stay overnight for further evaluation including evaluation by grievance manager. 01/12 No dizziness lightheadedness. Slept well. Feeling better. No new complaints. He feels like he is urinating fine but states it does come on slowly. 01/13 Feeling good radial home. Stable for discharge Discharge diagnosis: ZEV volume depletion hypotension bradycardia syncope - Time Spent with Patient Total time spent providing and/or coordinating discharge services: Greater than 30 minutes Medical - DS: Exam - Constitutional Vitals: Vital Signs Temp Pulse Resp BP Pulse Ox 01/13/18 06:59 96.9 F L 63 14 134/65 96 01/13/18 04:45 97.7 F 57 L 12 123/62 97 01/13/18 00:00 98.2 F 62 12 132/70 95 01/12/18 20:00 98.3 F 78 12 138/68 96 01/12/18 16:00 97.8 F 16 134/81 96 01/12/18 12:00 97.8 F 16 125/68 96 01/12/18 11:00 16 96 Intake and Output 01/12/18 01/13/18 01/13/18 21:59 05:59 13:59 Intake Total 610 / 610 990 / 990 Output Total 575 / 575 1175 / 1175 300 / 300 Balance 35 / 35 -185 / -185 -300 / -300 Intake: IV 250 / 250 Sodium Chloride 0.9% 1,000 ml @ 250 / 250 75 mls/hr IV .[id number] [facility] Rx#: [id number] Oral 610 / 610 740 / 740 Output: Void Amount 575 / 575 1175 / 1175 300 / 300 Other: Meal Dinner Percent of Meal Consumed 100% Urine Appearance Clear Clear Clear Urine Color Bright Yellow Straw Pale Urine Odor Normal Normal Normal Stool Consistency Normal for Patient # Voids 1 2 1 # Bowel Movements 1 Weight 89.131 kg Medical - DS: Data Labs on day of discharge: Labs from last 24 hours 01/13/18 04:50 Sodium 141 Potassium 3.5 Chloride 105 Carbon Dioxide 24 Anion Gap 12.0 BUN 36 H Creatinine 1.7 H GFR Calculation 41 Glucose 102 Calcium 8.4 L Preliminary micro results at discharge 01/11/18 18:58 Urine Culture - Preliminary Urine - Clean Void [facility] - DS: A/P - Patient/Caregiver Discharge Instructions Activity: increase activity as tolerated Diet: Consistent Carbohydrate Additional Instructions: Monitor blood sugars daily with meals and at bedtime keep a log and bring to PCP while you are off metformin and on a sliding scale. Metformin held for renal injury. Wean off beta-neftaly per PCP and may consider primidone for essential tremor Lisinopril/hydrochlorothiazide held until seen by grievance manager Prescriptions: Blood Sugar Diagnostic [Test Strips] 1 each ACHS #100 strip Insulin Lispro [Admelog Solostar] See Protocol SQ ACHS #10 ml Pen Needle, Diabetic [Insulin Pen Needle] 1 each ACHS #100 dis.needle Propranolol [Inderal] 20 mg PO BID #40 tab Syring-Needl,Disp,Insul,0.3 ml [Easy Touch Insulin Syringe] 1 each ACHS #100 disp.syrin - Follow up Plan Follow up with: Bola Roberts DO [Primary Care Provider] - Elsie Shetty MD [Physician] - Solo Dodge MD [Physician] - Disposition: Home, Self-Care Prognosis: Good Rehab Potential: Fair Medical - DS: Qual - VTE Deep Vein Thrombosis/Pulmonary Embolism Present on Admission: No
[2018-01-13] MEDS ORDERED: TAMSULOSIN 0.4 MG CAPSULE PO SCH (09:00)
[2018-01-13] MEDS: HEPARIN 5,000 UNIT/ML VIAL SQ SCH (09:33)
[2018-01-13] MEDS: TIMOLOL 0.5% OPHTH DROPS BOTTLE 5ML OU SCH (09:55)
[2018-01-13] MEDS: INSULIN LISPRO 1 UNIT/0.01 ML UNIT SQ SCH ×2 (09:59→11:32)
== END 2018-01-13 12:15 | disposition home or self-care (01) | DRG 699 ==
LOC: ED 11:49 → ICU 19:30 → MEDSUR 01-12 09:55
PROVIDERS: ADMIT Internal Medicine; ATTEND Internal Medicine
CPT/HCPCS: 99231